=== PATIENT | female | born 1960 | race Caucasian/White ===

== ENCOUNTER → 2016-07-03 | Outpatient (CLI) | payer BC ==
[~2016-07-03] MED LIST: ACTONEL150 MG PO; AMOXICILLIN 8751 TAB PO; ATELVIA35 MG PO; CALCARB 600600 MG PO; CEPHALEXIN500 M1 PO; NORCO 325 MG-7.1 TAB PO; PHENERGAN 25 TA25 MG PO
== END ==
LOC: MC.RAD 10:20
DX: Z12.31 Encounter for screening mammogram for malignant neoplasm of breast (principal)

== ENCOUNTER → 2017-07-20 | Outpatient (CLI) | payer BC | LOC: MC.RAD 10:00 | DX: Z12.31 Encounter for screening mammogram for malignant neoplasm of breast (principal) ==

== ENCOUNTER → 2018-08-03 | Outpatient (CLI) | payer BC | LOC: MC.RAD 07-29 14:00 | DX: Z12.31 Encounter for screening mammogram for malignant neoplasm of breast (principal) ==

== ENCOUNTER → 2020-03-07 | Outpatient (CLI) | payer BC | LOC: MC.RAD 14:35 | DX: Z12.31 Encounter for screening mammogram for malignant neoplasm of breast (principal); Z98.82 Breast implant status ==

== ENCOUNTER → 2021-05-12 | Outpatient (CLI) | payer BC | LOC: MC.RAD 14:10 | DX: Z12.31 Encounter for screening mammogram for malignant neoplasm of breast (principal) ==

== ENCOUNTER 2021-08-26 14:30 | Day surgery (SDC) | payer BC ==
[~2021-08-26] VITALS: Ht 162.6 cm; Wt 45.6 kg
[2021-08-26] MEDS ORDERED: CALCIUM 600 PLU1 TAB PO (15:26)
[2021-08-26] MEDS ORDERED: [UNRECOGNIZED DRUG - OTHER] (15:27)
[2021-08-26 15:33] VITALS: BP 150/78; PULSE 52; TEMP 98.1
[2021-08-26] MEDS ORDERED: PYRIDIUM 100MG100 MG PO (17:04)
[2021-08-26 18:05] VITALS: BP 140/74; PULSE 49; TEMP 99
--- NOTE | 2021-08-26 18:05 | NUR ---
PT TO BAY 6 PER CART FROM PACU. REPORT RECEIVED FROM SIL SINGLETON. VS OBTAINED. CALL LIGHT WITHIN REACH. AT BEDSIDE. TOLERATING ICE CHIPS WITHOUT DIFFICULTY. PT DENIES ANY PAIN AT THIS TIME. WILL CONTINUE TO MONITOR PT.
[2021-08-26 18:20] VITALS: BP 143/69; PULSE 49
--- NOTE | 2021-08-26 18:20 | NUR ---
PT CONTINUES TO DENY ANY NEEDS AND DENIES ANY DISCOMFORT AT THIS TIME. WILL CONTINUE TO MONITOR PT.
[2021-08-26 18:35] VITALS: BP 140/75; PULSE 42
--- NOTE | 2021-08-26 18:35 | NUR ---
PT STATES SHE IS NEEDING TO USE THE RESTROOM. PT VOIDED WITHOUT DIFFICULTY. PT STATES SHE IS READY FOR DISCHARGE.
--- NOTE | 2021-08-26 18:45 | NUR ---
IV DC'D. PT TOLERATED WELL.
--- NOTE | 2021-08-26 19:00 | NUR ---
DISCHARGE EDUCATION COMPLETED WITH PT AND HER . THEY VERBALIZED UNDERSTANDING OF HOME AND FOLLOW UP CARE. ALL QUESTIONS ANSWERED. DISCHARGE PAPERWORK GIVEN TO PT.
--- NOTE | 2021-08-26 19:10 | NUR ---
PT OFF UNIT PER WHEELCHAIR. PT DISCHARGE TO HOME WITH PER PERSONAL VEHICLE.
== END 2021-08-26 19:10 | disposition home or self-care (01) ==
LOC: SDCO 14:30
DX: R89.6 Abnormal cytological findings in specimens from other organs, systems and tissues (principal); R31.0 Gross hematuria; N32.9 Bladder disorder, unspecified; Z80.52 Family history of malignant neoplasm of bladder
CPT/HCPCS: C1769; J0690; J1100; J1885; J2405; J2704; J3010; J7120; Q9967

== ENCOUNTER 2023-04-28 14:47 | Outpatient (CLI) | payer BC ==
[~2023-04-28] VITALS: Ht 162.6 cm; Wt 47.7 kg
[~2023-04-28 14:47] MED LIST changes: +CALCIUM 600 PLU1 TAB PO; +PYRIDIUM 100MG100 MG PO; +[UNRECOGNIZED DRUG - OTHER]
[2023-04-28 15:04] VITALS: BP 129/80; PULSE 54; TEMP 98
== END 2023-04-28 15:20 ==
LOC: EUO 14:47
DX: M81.0 Age-related osteoporosis without current pathological fracture (principal)
CPT/HCPCS: J0897